=== PATIENT | male | born 1980 | race Caucasian/White ===

== ENCOUNTER 2016-12-14 04:53 | Emergency (ER) | payer BC ==
[~2016-12-14] VITALS: Ht 175.3 cm; Wt 115.5 kg
[~2016-12-14 04:53] MED LIST: ASPI-390 PO
[2016-12-14 04:58] VITALS: TEMP 36.7; Ht 175.3 cm; Wt 115.5 kg
[2016-12-14] MEDS ORDERED: XYLOCAINE 1%/SOD BICARB 20 ML VIAL INFIL ONE (05:08)
--- NOTE | 2016-12-14 05:28 | EMERGENCY ROOM VISIT NOTE ---
ED Visit Note First contact with patient: 05:01 CHIEF COMPLAINT: Left wrist laceration HISTORY OF PRESENT ILLNESS: This 36-year-old male patient presents to the emergency department ambulatory after cutting the left wrist just prior to arrival. The patient states that he was cutting a dessert and accidentally stabbed himself in the left wrist with the knife. The bleeding has stopped. He has normal movement of the left wrist and fingers. He reports tingling in the left fourth and fifth fingers. The patient rates the pain as sharp and 1/ 10. The patient denies any other injuries. The patient's Tetanus shot is up to date. REVIEW OF SYSTEMS: A 6 system review of systems was completed with positives and pertinent negatives listed in the HPI. ALLERGIES: No known drug allergies MEDICATIONS: No chronic medications PMH: No significant past medical history. SOCIAL HISTORY: The patient lives locally with family. PHYSICAL EXAM: Vital Signs: Reviewed Nurse's notes, vital signs stable. GENERAL : This is a 36-year-old male, in no acute distress, well-developed, well- nourished. SKIN: There is a 2 cm long laceration on the to the anterior aspect of the left wrist. The edges gape apart with traction. There is no foreign material in the wound and it looks clean. There is no active bleeding. No deep structures such as tendons, bones, or significant blood vessels are seen in the base of the wound. Normal strength and movement of the left wrist and all fingers. Capillary refill less than 2 seconds. Normal sensation to light and sharp touch. EMERGENCY DEPARTMENT COURSE: I examined the patient. The patient was given 1 g Tylenol for pain. Verbal consent was obtained to perform the procedure. Using sterile technique the wound was cleansed with Betadine. The area was sterilely draped. 2 ml of 1% buffered lidocaine was used to anesthetize the laceration on the left wrist. Once the patient was anesthetized, the wound was copiously irrigated under pressure with sterile saline. The wound was explored and was as described above. The laceration was repaired using 5 simple interrupted 5-0 nylon sutures with the wound edges being well approximated. The patient tolerated the procedure well. Hemostasis was achieved. The area was cleaned with sterile saline and dressed with bacitracin ointment and bandage. The patient did complain of tingling in his fingers. I think this was likely due to decompression the patient applied to the wrist. However, I did give the patient the contact information for Dr. Cherry to contact for follow-up if he has continued numbness or any difficulty moving the fingers in the next few days. He verbalized understanding of my assessment and treatment plan. The patient was discharged home in good condition. DIAGNOSIS: Left wrist laceration Problem List Medical Problems: (1) Anxiety Status: Chronic (2) Depressive disorder Status: Resolved Current/Historical Medications No Active Prescriptions or Reported Meds Allergies Coded Allergies: No Known Allergies (Unverified , 12/14/16) Vital Signs Date Time Temp Pulse Resp B/P Pulse Ox O2 Delivery O2 Flow Rate FiO2 12/14/16 04:58 36.7 98 20 146/98 99 Room Air Departure Information Impression Primary Impression: Laceration of left wrist Dispostion Home / Self-Care Condition GOOD Prescriptions No Active Prescriptions or Reported Meds Referrals Kenny Mathur M.D. (PCP) Reji Cherry MD Patient Instructions My [facility] Additional Instructions You have received 5 sutures on your wrist. These sutures are NOT dissolvable and WILL need to be removed by a health care provider in 8-10 days. You can return to the Emergency Department or contact your Primary Care Provider to have the sutures removed. Proper wound care is essential for adequate wound healing and infection prevention. You can shower and clean the wound with soap and water. Do not scour over the wound, pat dry with a towel. Do not submerse the wound (i.e. bathe or dish wash) until the sutures have been removed. You can use an antibiotic ointment with a dressing over the wound for the next 3-4 days. After this time you may leave the wound dry and open to the air. If crust develops over the wound you can use a Q-tip to apply a 1:1 peroxide:water solution to clean the wound. Look for signs of infection of the wound including: increased pain, swelling, foul discharge, streaking, or increased temperature. If any of these are noticed you should return to the Emergency Department for further assessment and treatment. As with any laceration you may have received nerve damage to the surrounding tissues. This damage may or may not be permanent. You should keep the area covered with sunscreen for the first 6 months to 1 year when at risk for exposure to help minimize scarring. You can also use scar reducing creams or Vitamin E oil to help minimize scarring. For pain control, you can use the following [id number] medicines (if >12 yo): - Regular strength (325mg/tab) Tylenol (acetaminophen) 2 tabs every 4-6 hours as needed. Do not exceed 12 tablets in a 24 hour period. Avoid taking more than 4 grams (4000 mg) of Tylenol per day. This includes any other sources of acetaminophen you may take on a regular basis. - Regular strength (200 mg/tab) Advil (ibuprofen) 1-2 tabs every 4-6 hours as needed. Do not exceed a dose of 3200 mg per day. Follow-up with Dr. Cherry if there is continued numbness of the hand or fingers in 2-3 days. Return to the emergency department if your symptoms worsen despite treatment course outlined above. Problem Qualifiers Primary Impression: Laceration of left wrist Encounter type: initial encounter Qualified Codes: S61.512A - Laceration without foreign body of left wrist, initial encounter
[2016-12-14] MEDS ORDERED: ACETAMINOPHEN 500 MG TAB PO STA (05:30)
[2016-12-14 05:43] VITALS: BP 130/84; PULSE 78; O2SAT 98
== END 2016-12-14 05:46 | disposition home or self-care (01) ==
LOC: C.EDB 04:54
DX: S61.512A Laceration without foreign body of left wrist, initial encounter (principal); W26.0XXA Contact with knife, initial encounter; F41.9 Anxiety disorder, unspecified; F32.9 Major depressive disorder, single episode, unspecified